=== PATIENT | female | born 1955 | race Hispanic/Latino ===

== ENCOUNTER 2017-02-28 16:15 | Emergency (ER) | payer OTHER ==
[~2017-02-28] VITALS: Ht 154.9 cm; Wt 75.0 kg
[~2017-02-28 16:15] MED LIST: ATEN1TAB PO; DIL2 PO; MELO15TA14 PO
[2017-02-28 16:20] VITALS: BP 136/92; PULSE 100; RESP 18; O2SAT 97
--- NOTE | 2017-02-28 16:28 | ED.REPORT ---
HPI-Allergic Reaction Date of Service Feb 28, 2017 ED Provider: Dr. Rod 61 y/o female with a hx of HTN presents to the ED complaining of tongue swelling , onset 2 hours ago. The pt states she has had hives for the past two days and Benadryl has not provided enough relief. The pt went to her PCP, Dr. Bae, with the same complaint and was prescribed Hydroxyzine. The pt suddenly experienced tongue swelling after taking the medication. She returned to her doctor who recommended she be seen at the ED. The pt denies SOB, nausea and vomiting. Nursing Notes Stated Complaint: POSSIBLE ALLERGIC REACTION Chief Complaint: Allergic Reaction Nursing Notes Reviewed: Yes Allergies: Coded Allergies: No Known Allergies (Unverified , 12/16/11) Scheduled Atenolol/Chlorthalidone-Expunged Drug! (Atenolol/Chlorthal 50/25-Expunged Drug! ) 1 Tab Tablet 1 TAB PO AM Hydromorphone-Expunged Drug, Do Not Renew! (Hydromorphone-Expunged Drug, Do Not Renew!) 2 Mg Tablet 2 MG PO PRN EVERY 6 HOURS Meloxicam-Expunged Drug, Do Not Renew! (Mobic-Expunged Drug, Do Not Renew!) 15 Mg Tablet 15 MG PO DAILY INSTRUCTED TO STOP General Time Seen by MD: 16:28 Chief Complaint Allergic reaction Hx Obtained From: Patient Arrived By: Walk-in Onset Occurred: 1 - 4 hours ago Symptom Duration: Since onset Progression Since Onset: Gradually improving Severity: Current: No pain currently Severity: Maximum: No pain Recent Healthcare: Recent doctor visit Similar Sx Previous: No Past Medical History Past Medical History Reports: Hypertension Past Surgical History sinus Smoking History Unknown if Ever Smoker Social History Other Social History: Good social support Ambulatory Status Independent Review of Systems Reports: hives Reports: swollen tongue Respiratory: Denies: Shortness of breath GI: Denies: Nausea, Vomiting Skin: Reports Itching Complete sys rev & neg: except as marked. Physical Exam Initial Vital Signs Vital Signs (First) Date Time Temp Pulse Resp B/P Pulse Ox O2 Delivery O2 Flow Rate FiO2 02/28/17 16:20 36.1 100 18 136/92 97 Room Air Initial VS: Reviewed Head / Eyes: Atraumatic, Normocephalic Neck: Supple, Non-tender, Full range of motion Abdomen / GI: Soft, Non-tender Extremities: Vascular intact, Neuro intact, No swelling, No tenderness Neurologic: Alert, Oriented, Nonfocal General/Constitutional: Awake, Alert, No acute distress, Cooperative Respiratory / Chest: Atraumatic, Breath sounds NL, Breath sounds = bilat, No respiratory distress, No rales, No rhonchi, No wheezing Cardiovascular: Heart rate NL, Regular rhythm, Heart sounds NL, No gallop, No murmurs, No rubs Skin: Atraumatic, Color NL Color / Condition: Positive: Rash present (trunk and extremities. ) ENT: Atraumatic, Pharynx NL Minimally swollen tongue. Re-Eval/Medical Decision Med Decision/Clinical Course Without any new intervention, she has improved significantly from the time she was seen at the clinic prior to arrival here in the emergency department. I am reluctant to continue hydroxyzine in this setting. I have encouraged the patient to use Benadryl alone along with the corticosteroid prescribed by . I do not think any further intervention is indicated at this time. Source of Hx: Old records Re-Evaluation/Progress : Time of Eval: 16:30 Re-Evaluation/Progress Note: Rechecked pt. Discussed diagnosis and plan to discharge. Pt understands and agrees with the plan. F/U instructions and RTER warning given. All questions addressed. Counseled Regarding: Diagnosis, Need for follow-up, When/why to return to ED Discharge & Departure Primary Impression: Allergic reaction Encounter type: initial encounter Qualified Code: T78.40XA - Allergy, unspecified, initial encounter Disposition: Home Discharge Condition All VS Reviewed: Yes Condition: Stable Patient Instructions: General Allergic Reaction (ED) Additional Instructions: Thank you for entrusting us with your care today. I would recommend stopping Hydroxyzine and starting on Prednisone as prescribed. You may also use Benadryl 25-50 mg every 6 hours as needed. Follow up with your primary care provider if needed. Return to the emergency department in case of difficulty breathing, significant increase in tongue swelling or any new or concerning symptoms. Referrals: Edis Lau MD (PCP) Scribe Attestation Portions of this note were transcribed by Israel Sawant. I, , personally performed the history, physical exam and medical decision-making;I reviewed and confirmed the accuracy of the information in the transcribed note. Signed by Jared Mitchell. 02/28/17 16:52 copies to: Edis Lau MD, Kirk H MD Feb 28, 2017 16:28 Israel Sawant Feb 28, 2017 16:50
[2017-02-28 17:04] VITALS: BP 130/89; PULSE 89; RESP 17; O2SAT 95
== END 2017-02-28 17:16 | disposition home or self-care (01) ==
LOC: SED 16:15
DX: R22.0 Localized swelling, mass and lump, head (principal); T43.595A Adverse effect of other antipsychotics and neuroleptics, initial encounter; I10 Essential (primary) hypertension; Z79.891 Long term (current) use of opiate analgesic